=== PATIENT | male | born 1945 | race Two or more races ===

== ENCOUNTER 2019-06-30 08:56 | Outpatient (CLI) | payer OTHER | END 2019-06-30 09:11 | disposition home or self-care (01) | LOC: NUCLEAR 08:56 | DX: I25.6 Silent myocardial ischemia (principal); R07.89 Other chest pain | CPT/HCPCS: 78452; 93017; A9500; J1250 ==

== ENCOUNTER 2021-09-04 07:12 | Outpatient (CLI) | payer OTHER | END 2021-09-04 07:13 | disposition home or self-care (01) | LOC: NUCLEAR 07:12 | PROVIDERS: ATTEND Internal Medicine Cardiovascular Disease | DX: I20.9 Angina pectoris, unspecified (principal) | CPT/HCPCS: 78452; A9500 ==